=== PATIENT | male | born 1970 ===

== ENCOUNTER 2022-04-13 21:09 | Emergency (ER) | payer MEDICARE, OTHER ==
[2022-04-13 22:38] VITALS: BP 130/88
[2022-04-13 23:20] LABS: Hematocrit 38.7 % (35.5-45.6); Hemoglobin 12.9 gm/dl (11.8-15.2); Mean Corpuscular HGB Conc 34 % (32-34); Mean Corpuscular Volume 90 fl (84-94); Platelet Count 118 K/mm3 (140-440); Red Blood Count 4.28 M/mm3 (3.65-5.03); Red Cell Distribution Width 15.2 % (13.2-15.2)
[2022-04-13 23:30] LABS: Alanine Aminotransferase 79 units/L (7-56); Albumin 2.9 g/dL (3.9-5); BUN/Creatinine Ratio 10; Blood Urea Nitrogen 8 mg/dL (9-20); Calcium 8.3 mg/dL (8.4-10.2); Hemolysis Index 22
[2022-04-14 00:20] LABS: Basophils % (Manual) 0 % (0.0-1.8); Platelet Estimate Consistent w Auto; Total Cells Counted 100
[2022-04-14] MEDS: SODIUM CHLORIDE 0.9% 1000 ML 1,000 ML IV ONE (11:54)
--- NOTE | 2022-04-14 12:13 | Emergency Department Report ---
ED General Adult HPI - General Chief complaint: Sore Throat Stated complaint: Oral pain and mouth Time Seen by Provider: 04/14/22 10:09 Source: patient, RN notes reviewed Mode of arrival: Ambulatory Limitations: No Limitations - History of Present Illness Initial comments: The patient was evaluated in the emergency department for symptoms described in the history of present illness. He/she was evaluated in the context of the global COVID-19 pandemic, which necessitated consideration that the patient might be at risk for infection with the virus that causes COVID-19. Institutional protocols and algorithms that pertain to the evaluation of patient s at risk for COVID-19 are in a state of rapid change based on information released by regulatory bodies including the CDC and federal and state organizations. These policies and algorithms were followed during the patient's care in the emergency department. Please note that these policies, procedures and recommendations changed on a rapid basis. This is a 52-year-old gentleman, who is HIV positive, with a history of diabetes, currently on antiviral therapy, who lives in splits time between [facility], and [place]. He is currently in [place] until June, and does not have local outpatient primary care, or infectious disease follow-up. He presents to the department today with a complaint of painful ulcers and sores in his mouth. He reports that he is worried that he might have oral herpes. His last sexual contact was months ago, and he reports that it was with barrier protection. He otherwise denies headache, neck pain, chest pain, abdominal pain, shortness of breath, nausea, vomiting, diarrhea, dysuria, and rectal pain He is able to drink. He is drinking apple juice in the room. -: days(s) Location: mouth Consistency: constant Improves with: rest Worsens with: eating Associated Symptoms: denies other symptoms - Related Data Previous Rx's Medication Instructions Recorded Last Taken Type Acyclovir 600 mg PO Q6HR #2 bottle 04/14/22 Unknown Rx Lidocaine Viscous 2% 15 ml MM Q6HR PRN #30 unit 04/14/22 Unknown Rx Allergies Allergy/AdvReac Type Severity Reaction Status Date / Time No Known Allergies Allergy Unverified 04/13/22 22:43 ED Review of Systems ROS: Stated complaint: DIFFICULT SWALLOWING Other details as noted in HPI Comment: All other systems reviewed and negative ENT: dental pain, other (Oral pain, mouth pain, and lip pain). denies: ear pain, throat pain, congestion ED Past Medical Hx - Medications Home Medications: Home Medications Medication Instructions Recorded Confirmed Last Taken Type Acyclovir 600 mg PO Q6HR #2 bottle 04/14/22 Unknown Rx Lidocaine Viscous 2% 15 ml MM Q6HR PRN #30 unit 04/14/22 Unknown Rx ED Physical Exam - General Limitations: No Limitations General appearance: alert, in no apparent distress - Head Head exam: Present: atraumatic, normocephalic - Eye Eye exam: Present: normal appearance, EOMI. Absent: nystagmus - ENT ENT exam: Present: normal exam, mucous membranes moist, normal external ear exam, other (There is no stridor. There were no white plaques noted. Thrush is not noted. Question vesicular lesion noted on the superior midline upper lip) - Neck Neck exam: Present: normal inspection, full ROM. Absent: tenderness, meningismus - Respiratory Respiratory exam: Present: normal lung sounds bilaterally. Absent: respiratory distress, wheezes, rales, rhonchi, stridor, decreased breath sounds - Cardiovascular Cardiovascular Exam: Present: regular rate, normal rhythm, normal heart sounds. Absent: bradycardia, tachycardia, irregular rhythm, systolic murmur, diastolic murmur, rubs, gallop - GI/Abdominal GI/Abdominal exam: Present: soft. Absent: distended, tenderness, guarding, rebound, rigid, pulsatile mass - Rectal Rectal exam: Present: deferred - Extremities Exam Extremities exam: Present: normal inspection, full ROM, other (2+ pulses noted in the bilateral upper and lower extremities. There is no palpable cord. negative Homans sign. Muscular compartments are soft. The pelvis is stable.). Absent: pedal edema, calf tenderness - Back Exam Back exam: Present: normal inspection, full ROM. Absent: tenderness, CVA tenderness (R), CVA tenderness (L), paraspinal tenderness, vertebral tenderness - Neurological Exam Neurological exam: Present: alert, oriented X3, normal gait, other (No facial droop. Tongue midline. Extraocular movements intact bilaterally. Facial sensation intact to light touch in V1, V2, V3 distribution bilaterally. 5 and a 5 strength in 4 extremities. Sensation intact to light touch in 4 extremities.). Absent: motor sensory deficit - Psychiatric Psychiatric exam: Present: normal affect, normal mood - Skin Skin exam: Present: warm, dry, intact, normal color. Absent: rash ED Course Vital Signs 04/13/22 22:37 Temperature 97.8 F Pulse Rate 88 Respiratory 16 Rate Blood Pressure 130/88 O2 Sat by Pulse 98 Oximetry - Pulse Oximetry Interpretation Digit-Finger Initial Pulse Oximetry Readin O2 Sat by Pulse Oximetry: 100 Actions Taken: none ED Medical Decision Making - Lab Data Result diagrams: 04/13/22 22:44 04/13/22 22:44 Vital Signs 04/13/22 22:37 Temperature 97.8 F Pulse Rate 88 Respiratory 16 Rate Blood Pressure 130/88 O2 Sat by Pulse 98 Oximetry Lab Results 04/13/22 04/13/22 Range/Units 22:44 22:44 WBC 4.2 L (4.5-11.0) K/mm3 RBC 4.28 (3.65-5.03) M/mm3 Hgb 12.9 (11.8-15.2) gm/dl Hct 38.7 (35.5-45.6) % MCV 90 (84-94) fl MCH 30 (28-32) pg MCHC 34 (32-34) % RDW 15.2 (13.2-15.2) % Plt Count 118 L (140-440) K/mm3 Add Manual Diff Complete Total Counted 100 Seg Neutrophils % Software Engineer Backend Seg Neuts % (Manual) 43.0 (40.0-70.0) % Band Neutrophils % 0 % Lymphocytes % (Manual) 44.0 H (13.4-35.0) % Reactive Lymphs % (Man) 0 % Monocytes % (Manual) 9.0 H (0.0-7.3) % Eosinophils % (Manual) 4.0 (0.0-4.3) % Basophils % (Manual) 0 (0.0-1.8) % Metamyelocytes % 0 % Myelocytes % 0 % Promyelocytes % 0 % Blast Cells % 0 % Nucleated RBC % Not Reportable Seg Neutrophils # Man 1.8 (1.8-7.7) K/mm3 Band Neutrophils # 0.0 K/mm3 Lymphocytes # (Manual) 1.8 (1.2-5.4) K/mm3 Abs React Lymphs (Man) 0.0 K/mm3 Monocytes # (Manual) 0.4 (0.0-0.8) K/mm3 Eosinophils # (Manual) 0.2 (0.0-0.4) K/mm3 Basophils # (Manual) 0.0 (0.0-0.1) K/mm3 Metamyelocytes # 0.0 K/mm3 Myelocytes # 0.0 K/mm3 Promyelocytes # 0.0 K/mm3 Blast Cells # 0.0 K/mm3 WBC Morphology Not Reportable Hypersegmented Neuts Not Reportable Hyposegmented Neuts Not Reportable Hypogranular Neuts Not Reportable Smudge Cells Not Reportable Toxic Granulation Not Reportable Toxic Vacuolation Not Reportable Dohle Bodies Not Reportable Pelger-Huet Anomaly Not Reportable Patsy Rods Not Reportable Platelet Estimate Consistent w auto Clumped Platelets Not Reportable Plt Clumps, EDTA Not Reportable Large Platelets Not Reportable Giant Platelets Not Reportable Platelet Satelliting Not Reportable Plt Morphology Comment Not Reportable RBC Morphology Not Reportable Dimorphic RBCs Not Reportable Polychromasia Not Reportable Hypochromasia Not Reportable Poikilocytosis Not Reportable Anisocytosis Not Reportable Microcytosis Not Reportable Macrocytosis Not Reportable Spherocytes Not Reportable Pappenheimer Bodies Not Reportable Sickle Cells Not Reportable Target Cells Not Reportable Tear Drop Cells Not Reportable Ovalocytes Not Reportable Helmet Cells Not Reportable [place] Bodies Not Reportable [place] Rings Not Reportable [place] Cells Not Reportable Bite Cells Not Reportable Crenated Cell Not Reportable Elliptocytes Not Reportable Acanthocytes (Spur) Not Reportable Rouleaux Not Reportable Hemoglobin C Crystals Not Reportable Schistocytes Not Reportable Malaria parasites Not Reportable [place] Bodies Not Reportable Hem Pathologist Commnt No Sodium 140 (137-145) mmol/L Potassium 3.8 (3.6-5.0) mmol/L Chloride 107.5 H (98-107) mmol/L Carbon Dioxide 24 (22-30) mmol/L Anion Gap 12 mmol/L BUN 8 L (9-20) mg/dL Creatinine 0.8 (0.8-1.3) mg/dL Estimated GFR > 60 ml/min BUN/Creatinine Ratio 10 % Glucose 127 H (75-100) mg/dL Calcium 8.3 L (8.4-10.2) mg/dL Total Bilirubin 0.30 (0.1-1.2) mg/dL AST 78 H (5-40) units/L ALT 79 H (7-56) units/L Alkaline Phosphatase 83 (35-129) units/L Total Protein 7.7 (6.3-8.2) g/dL Albumin 2.9 L (3.9-5) g/dL Albumin/Globulin Ratio 0.6 % - Medical Decision Making Differential diagnosis, including but not limited to: Canker sores, mouth sores, disseminated HIV, oral herpes Assessment and plan: 52-year-old gentleman, who is afebrile, with reassuring vital signs, who is protecting his airway, with without stridor, with oral pain, without evidence of lingual thrush or throat thrush. He is able to drink apple juice without difficulty. He is protecting his airway. Extensive discussion had with patient regarding need to establish close outpatient care and follow-up here in [place], including primary care and/or ID. Uncertain if lesions represents herpes or not, I do not appreciate vesicles, the patient reports that his all discomfort feels similar to prior episode of oral herpes. We will therefore prescribe lidocaine liquid as needed, as well as acyclovir liquid. Patient is observed in this department for hours without clinical decompensation. He is suitable to follow-up with outpatient primary care and/or ID. Return precautions are reviewed. All questions answered. Critical care attestation.: If time is entered above; I have spent that time in minutes in the direct care of this critically ill patient, excluding procedure time. ED Disposition Clinical Impression: Mouth sore Disposition: 01 HOME / SELF CARE / HOMELESS Is pt being admited?: No Does the pt Need Aspirin: No Condition: Good Additional Instructions: Advance diet as tolerated. [place] teeth at least twice daily, and floss at least once daily. Avoid consumption of alcohol, tobacco and smoke products, and consume foods that are easy to chew, swallow, and digest. We recommend continuation of current outpatient medications, take the lidocaine as needed for oral pain, and oral acyclovir as directed. We recommend follow-up with outpatient primary care, or infectious disease within the next 7 to 10 days. For the patient's convenience, local specialists have been listed that he may follow-up with. Please return to the emergency room right away with new pain, worsened pain, migration of pain, projectile vomiting, change in mental status, confusion, inability tolerate liquid feeds, new, worsened or different symptoms not present on the initial emergency room evaluation Referrals: [facility] [Outside] - 3-5 Days [facility] [Provider Group] - 3-5 Days [facility] [Provider Group] - 3-5 Days Forms: Work/School Release Form(ED)
[2022-04-14] MEDS: LIDOCAINE VISCOUS 2% 15 ML ORAL LIQD MM STA (12:22)
== END 2022-04-14 18:55 | disposition home or self-care (01) ==
LOC: ED 21:09
DX: K13.70 Unspecified lesions of oral mucosa (principal); Z79.899 Other long term (current) drug therapy
CPT/HCPCS: 36415; 80053; 85007; 85025; 96360; 99283; J7030